=== PATIENT | female | born 2000 | race Hispanic/Latino ===

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

== ENCOUNTER 2020-03-27 14:41 | Observation (INO) | payer OTHER ==
[~2020-03-27] VITALS: Ht 154.9 cm; Wt 50.6 kg
[~2020-03-27 14:41] MED LIST: PROVENTIL HFA6.7 GM INH
--- OUTSIDE RECORDS SUMMARY | 2020-03-27 14:44 | XMS ---
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 [facility] VISIT COUNT (12 MO.) [address] [place] [address] [facility] TOTAL 2 NOTE: Visits indicate total known visits. ED/UCC VISIT TRACKING (12 MO.) 03/27/2020 14:42 [facility] TYPE: Emergency COMPLAINT: - VOMITING, SYNCOPE, VISION PROBLEM 04/01/2019 09:34 [facility] TYPE: Emergency DIAGNOSES: - Nausea with vomiting, unspecified - vomiting,abdominal pain - Right lower quadrant pain INPATIENT VISIT TRACKING (12 MO.) No inpatient visits to display in this time frame [email or web address]
[2020-03-27] MEDS ORDERED: MONO-LINYAH1 EACH PO (14:55)
--- NOTE | 2020-03-27 20:50 | NUR ---
REPORT RECEIVED FROM BLANCHING MACHINE OPERATORALONDRA CORONADO. WILL CONTINUE PLAN OF CARE FOR PT.
--- NOTE | 2020-03-27 21:41 | NUR ---
pt ARRIVES TO [facility] FLOOR VIA STRETCHER, ABLE TO TRANSFER SELF TO HOSPITAL BED. COMPLAINS OF "CRAMPING" IN LOWER ABDOMEN. RATES PAIN 7/10 "COMES AND GOES". PRN TYLENOL ADMINISTERED. pt DENIES NAUSEA AT THIS TIME. ICE WATER PROVIDED AND IN REACH. WARM BLANKETS PROVIDED. ORIENTATION TO ROOM PROVIDED. IV SITE FLUSHED WNL, GOOD BLOOD RETURN. IVF AND IV MAGNESIUM PIGGYBACK INFUSING ORDERED. CALL LIGHT IN REACH.
--- NOTE | 2020-03-27 22:46 | NUR ---
THIS RN IN TO ASSESS PT. PT SLEEPING IN BED BUT AWOKE EASILY. PT ALERT AND ORIENTED AND REPORTS 2/10 STOMACH/ABDOMINAL PAIN/CRAMPING WHICH SHE SAYS IS NOW TOLERABLE AFTER THE PRN TYLENOL. 1GM OF MAGNESIUM NOW INFUSING ORDERED. OTHER IVF STILL INFUSING WELL (SEE MAR). ASSESSMENT COMPLETE. PT HR ASSESSED WITH MONITOR DUE TO RATE HEARD WHILE AUSCULTATING AND WAS 103 BPM. PT REPORTS NO DIZZYNESS OR LIGHTHEADEDNESS. PT ALSO REPORTS NOT HAVING A BM SINCE YESTERDAY, PT STATES SHE NORMALLY HAS ONE DAILY. PT REPORTS NO FURTHER NEEDS WHEN ASKED AND RETURNED BACK TO SLEEP. IVF INFUSING, CALL LIGHT WITHIN REACH, BED IN LOWEST POSITION. WILL CONTINUE PLAN OF CARE.
--- NOTE | 2020-03-27 23:01 | NUR ---
RESPONDED TO PT CALL LIGHT. PT NEEDED TO VOID. PT DISCONNECTED TO IV MOMENTARILY. PT WAS ABLE TO GET OUT OF BED, WALK TO BATHROOM TO VOID, AND WALK BACK WITHOUT ASSISTANCE. GAIT WAS STEADY. PT NOW BACK IN BED, IVF INFUSING, PT ATTEMPTING TO GO TO SLEEP. PT REPORTS NO FURTHER NEEDS WHEN ASKED. CALL LIGHT WITHIN REACH, BED IN LOWEST POSITION, WILL CONTINUE PLAN OF CARE.
--- NOTE | 2020-03-28 00:52 | NUR ---
IV PUMP ALARMING, THIS RN INTO PT'S ROOM. IV SITE WNL, PT IV INFUSION RESTARTED. PT SLEEPING IN BED, RESPIRATIONS EVEN AND UNLABORED. PT IN NO APPARENT DISTRESS AND WAS LEFT UNDISTURBED. WILL CONTINUE PLAN OF CARE.
--- NOTE | 2020-03-28 01:35 | NUR ---
THIS RN IN TO CHECK ON PT AND TAKE VS. PT SLEEPING IN BED BUT AWOKE EASILY. IV FLUSHES EASILY, IVF INFUSING ORDERED. VS STABLE, INITIALLY MONITOR READING HAD A HR OF 120'S, BUT WENT TO THE 80'S AND STAYED THERE. RADIAL PULSE FELT AND WAS NOT RAPID. PT STATED SHE FELT NO FEELINGS OF LIGHT HEADEDNESS, DIZZYNESS, OR PALPITATIONS. BP 107/57 (69). PT REPORTS NO PAIN OR NAUSEA. PT REPORTS NO FURTHER NEEDS WHEN ASKED, WILL CONTINUE PLAN OF CARE. CALL LIGHT WITHIN REACH, BED IN LOWEST POSITION.
--- NOTE | 2020-03-28 03:00 | NUR ---
THIS RN IN TO CHECK ON PT. PT SLEEPING ON SIDE, RESPIRATIONS EVEN AND UNLABORED. IVF INFUSING ORDERED. PT IN NO APPARENT DISTRESS AND WAS LEFT UNDISTURBED. WILL CONTINUE PLAN OF CARE.
--- NOTE | 2020-03-28 05:50 | NUR ---
THIS RN IN TO ASSESS PT. PT AWAKE AND ALERT AND HAD JUST HAD HER LABS DRAWN. PT VS STABLE, PT REPORTS NO PAIN OR NAUSEA WHEN ASKED. PT ASSESSED. AFTER ASSESSMENT PT WALKED OVER TO BATHROOM WITHOUT ASSISTANCE TO VOID AND WAS ABLE TO GET BACK TO BED WITHOUT DIFFICULTY. PT STATED SHE DID NOT HAVE ANY FEELINGS OF DIZZYNESS, LIGHTHEADEDNESS, OR WEAKNESS WHILE GOING TO BATHROOM. IVF COMPLETE, IV SITE WNL, IV PATENT AND SALINE LOCKED. PT PROVIDED WITH ICE WATER. PT REPORTS NO FURTHER NEEDS WHEN ASKED, WILL CONTINUE PLAN OF CARE. CALL LIGHT WITHIN REACH, BED IN LOWEST POSITION.
--- NOTE | 2020-03-28 06:03 | NUR ---
IN TO CHECK ON pt. HR REGULAR RHYTHM WITH AUSCULTATION APICALLY AND PALPATION OF RADIAL PULSES. pt DENIES ANY PAIN, NAUSEA, WILL LOOK AT BREAKFAST MENU, DISCUSSED ORDERING PROCESS. CALL LIGHT IN REACH.
--- NOTE | 2020-03-28 06:19 | NUR ---
PT ARRIVED TO M/S AND HAD SOME PRN TYLENOL AND WAS PLACED ON IVF 20K IN D5%. PT ALSO GIVEN 5GM TOTAL OF MAGNESIUM IV. PT SLEPT THROUGH MOST OF THE NIGHT AND ONLY GOT UP TO VOID. PT HAD NO FURTHER COMPLAINTS OF PAIN, NAUSEA, OR WEAKNESS THROUGHOUT THE NIGHT. DURING MORNING ASSESSMENT PT DENIED PAIN, NAUSEA, AND WEAKNESS WELL. PT CURRENTLY SALINE LOCKED. PT TOLERATING CLEARS AT THIS TIME.
--- NOTE | 2020-03-28 07:16 | NUR ---
RECIEVED MORNING REPORT. PT LAYING ON RT SIDE. EYES CLOSED. NO CONCERNS. CALL LIGHT WITHIN REACH.
--- NOTE | 2020-03-28 08:00 | NUR ---
REPORT RECEIVED. PT LYING IN BED ON RIGHT SIDE WITH EYES CLOSED. CALL LIGHT IN REACH. RR EQUAL AND NONLABORED.
--- NOTE | 2020-03-28 09:42 | NUR ---
ASSESSMENT COMPLETED. PT WITHOUT EMISIS OR NASUEA SINCE YESTERDAY. ABLE TO TOLERATE REGULAR BREAKFAST. DENIES PAIN. CALL LIGHT IN REACH
[2020-03-28] MEDS ORDERED: ONDANSETRON HCL4 MG PO (12:25)
--- NOTE | 2020-03-28 12:49 | NUR ---
IV TAKEN OUT UPON RN REQUEST. CATH INTACT AND LOOKED GOOD, RN NOTIFIED. CALL LIGHT IN REACH. NO FURTHER NEEDS AT THIS TIME.
--- NOTE | 2020-03-28 13:34 | NUR ---
PT ALERT, ORIENTED AND WAITING FOR DC. SHE SAID SHE IS FEELING MUCH BETTER, AND IS NOT HAVING ANY NAUSEA. PT FEELS WELL CARED FOR. SHE THANKED ME FOR COMING IN, GAVE BLESSING. WILL FOLLOW
--- NOTE | 2020-03-28 13:36 | EKG ---
[facility] [address] [place] [address] Signed Sinus tachycardia Nonspecific ST and T wave abnormality Abnormal ECG No previous ECGs available Confirmed by ANDERSON STEPHENSON MD ([id number]) on 03/28/2020 1:35:52 PM Electronically Signed By: ANDERSON STEPHENSON MD 03/28/20 1336 PATIENT NAME: ALEJANDRO PENNY Electrocardiogram DATE OF : [birth year] PHYSICIAN: ANDERSON STEPHENSON MD REPORT #: [id number] REPORT IS CONFIDENTIAL AND NOT TO BE RELEASED WITHOUT AUTHORIZATION
== END 2020-03-28 12:50 | disposition home or self-care (01) ==
LOC: ED 14:41 → MS 14:43
PROVIDERS: ADMIT Internal Medicine; ATTEND Internal Medicine
DX: R11.10 Vomiting, unspecified (principal); R10.31 Right lower quadrant pain; R65.10 Systemic inflammatory response syndrome (SIRS) of non-infectious origin without acute organ dysfunction; E83.42 Hypomagnesemia; J45.20 Mild intermittent asthma, uncomplicated; F12.90 Cannabis use, unspecified, uncomplicated; R00.0 Tachycardia, unspecified; Z87.891 Personal history of nicotine dependence; Z20.822 Contact with and (suspected) exposure to COVID-19
CPT/HCPCS: 36415; 74177; 80048; 80053; 81001; 83690; 83735; 84443; 84703; 85025; 93005; 93010; 96375; 96376; 99285-25; C9803; G0378; J1630; J2405; J3475; J3480; J7030; J7121; Q9967; U0003